=== PATIENT | female | born 2000 | race African-American/Black ===

== ENCOUNTER 2020-03-05 22:41 | Emergency (ER) | payer OTHER ==
[~2020-03-05] VITALS: Ht 152.4 cm; Wt 54.4 kg
[2020-03-05] MEDS ORDERED: ACETAMINOPHEN 325 MG TAB PO ONE (23:15)
[2020-03-06 00:08] LABS: Alanine Aminotransferase 30 U/L (13-56); Albumin 3.1 g/dL (3.4-5.0); Anion Gap 9 (5-15); Aspartate Aminotransferase 39 U/L (15-37); BUN/Creatinine Ratio 14.3; Blood Urea Nitrogen 12 mg/dL (7-18); Calcium 8.4 mg/dL (8.5-10.1); Carbon Dioxide 19 mmol/L (21-32); Chloride 106 mmol/L (98-107); GFR African American 112 mL/min; GFR Non-African American 93 mL/min; Glucose 78 mg/dL (74-106); Magnesium 2.1 mg/dL (1.6-2.6); Potassium 3.9 mmol/L (3.5-5.1); Sodium 134 mmol/L (136-145)
[2020-03-06 00:11] LABS: Alkaline Phosphatase 65 U/L (45-117); Bilirubin, Total 0.5 mg/dL (0.2-1.0); Total Protein 7.1 g/dL (6.4-8.2)
[2020-03-06 01:21] LABS: Hematocrit 37.1 % (36.0-46.0)
[2020-03-06 01:22] LABS: Hemoglobin 12.2 g/dL (12.2-16.2); Mean Corpuscular Hemoglobin 26.7 pg (28.0-32.0); Mean Corpuscular Volume 81.1 fL (80.0-100.0); Platelet Count (auto) 159 10^3/uL (140-450); Red Blood Cells 4.57 10^6/uL (4.0-5.20); Red Cell Distribution Width 14.2 % (11.8-14.3); White Blood Cell 7.8 10^3/uL (4.4-10.8)
[2020-03-06 01:23] LABS: INR 1.08 (0.9-1.15)
[2020-03-06 01:24] LABS: Basophils % (manual) 0 (0.0-2.0); Blast Cells 0; Eosinophils % (manual) 0 (0-7); Myelocytes % 0; Promyelocytes % 0
[2020-03-06] MEDS ORDERED: SODIUM CHLORIDE 0.9% 1,000 ML IV ONE ×2 (02:00→02:30)
[2020-03-06] MEDS ORDERED: cefTRIAXone 1GM/50ML D5W 50 ML IV ONE (02:30)
[2020-03-06 03:26] LABS: Band Neutrophils % (manual) 16; Lymphocytes % (manual) 34 (10.0-50.0); Metamyelocytes % 1; Monocytes % (manual) 13 (0-12); Reactive Lymphocytes 1
[2020-03-06] MEDS ORDERED: IOHEXOL 350 MG/ML 100ML IJ ONE (03:38)
[2020-03-06 05:00] VITALS: BP 107/70
== END 2020-03-06 05:22 | disposition home or self-care (01) ==
LOC: ER 22:41
DX: R07.89 Other chest pain (principal); Z20.828 Contact with and (suspected) exposure to other viral communicable diseases
CPT/HCPCS: 36415; 71045; 71275; 80053; 83735; 83880; 84443; 84484; 84702; 85007; 85027; 85379; 85610; 85730; 87086; 87426; 93005; 96365; 99285; C9803; J0696; J7030; Q9967; U0003; 96361

== ENCOUNTER 2022-03-10 00:09 | Emergency (ER) | payer SELFPAY ==
[~2022-03-10] VITALS: Ht 157.5 cm; Wt 54.5 kg
[2022-03-10 00:19] VITALS: BP 114/76
== END 2022-03-10 00:41 | disposition left against medical advice (07) ==
LOC: EDBD 00:09 → ER 00:11
DX: M79.601 Pain in right arm (principal); Z53.21 Procedure and treatment not carried out due to patient leaving prior to being seen by health care provider